=== PATIENT | female | born 1935 | race Hispanic/Latino ===

== ENCOUNTER 2018-10-22 17:00 | Inpatient (IN) | payer MEDICARE, MEDICAID ==
[~2018-10-22 17:00] MED LIST: ISOVUE-370 76%-LOCM 1 ML ONE
[2018-10-22] MEDS ORDERED: Rocuronium Bromide 10 MG/ML (10ML VIAL) ONE ×2 (17:08→17:14)
[2018-10-22 17:27] LABS: #Basophils 0.1 thou/uL (0.0-0.2); #Eosinphils 0.1 thou/uL (0.0-0.7); #Lymphocytes 2.1 thou/uL (1.20-3.40); #Monocytes 0.9 thou/uL (0.11-0.59); #Neutrophils 6.9 thou/uL (1.40-6.50); %Eosinophils 1.3 % (0.0-10.0); %Lymphocytes 20.5 % (21.0-51.0); %Monocytes 8.9 % (0.0-10.0); %Neutrophils 68.3 % (42.0-75.0); Hemoglobin 12.6 g/dL (12.0-16.0); Mean Corpuscular HGB CONC 31.5 g/dL (32.0-36.0); Mean Corpuscular Hemoglobin 27.7 pg (27.0-31.0); Mean Corpuscular Volume 88.1 fL (78.0-98.0); Mean Platelet Volume 7.1 fL (7.4-10.4); Platelet Count 338 thou/uL (130-400); Red Blood Cell (RBC) Count 4.56 mill/uL (4.20-5.40)
[2018-10-22 17:35] LABS: INR-International Normal Ratio 1.3; Prothrombin Time 15.9 SEC (12.0-14.7)
[2018-10-22 17:46] LABS: Actual Bicarbonate (HCO3a) 14.9 mEq/L (22-28); Analyzer IN Cardio ER; Base Excess (BEa) -9.4 mEq/L (-2.0 to +3.0); CO2 Tension 27.8 mmHg (35.0-45.0); Calcium, Ionized 1.13 mmol/L (1.12-1.30); Carboxyhemoglobin (COHb) 0.5 gm% (0.0-3.0); Hemoglobin (Hb) 11.5 g/dL (12.0-16.0); O2 Tension (PaO2) 69.1 mmHg (> 60.0); Potassium - ABG Lab 3.35 mmol/L (3.70-5.30); pH, Arterial 7.35 (7.35-7.45)
[2018-10-22 17:48] LABS: Puncture Site RRA
[2018-10-22 17:52] LABS: Bilirubin Negative (Negative); Blood, Urine Large (Negative); Glucose, Urine (Dipstick) 100 mg/dL (Negative); Leukocyte Negative (Negative); Nitrite Negative (Negative); Protein, Urine (Dipstick) > or equal to 300 mg/dL (Neg-Trace); Urobilinogen 0.2 mg/dL (Less than 2)
[2018-10-22 17:58] LABS: Lactic Acid 4.2 mmol/L (0.5-2.2)
[2018-10-22 18:01] LABS: ALT (SGPT) 18 U/L (8-55); AST (SGOT) 38 U/L (5-34); Albumin 3.2 g/dL (3.4-4.8); Alkaline Phosphatase 114 U/L (40-150); Anion Gap 20 mmol/L (10-20); BUN (Urea Nitrogen) 15 mg/dL (9.8-20.1); Bilirubin, Total 0.5 mg/dL (0.2-1.2); Calc. Creatinine Clearance 0 mL/min (70-130); Calcium 9.8 mg/dL (7.8-10.44); Carbon Dioxide 14 mmol/L (23-31); Chloride 104 mmol/L (98-107); Estimated GFR-MDRD 58; Globulin 5.6 g/dL (2.4-3.5); Glucose 200 mg/dL (83-110); Potassium 4.5 mmol/L (3.5-5.1); Protein, Total 8.8 g/dL (6.0-8.3); Sodium 133 mmol/L (136-145)
[2018-10-22 18:04] LABS: Clarity Clear (Clear)
[2018-10-22 18:05] LABS: Bacteria/HPF 4+ HPF (None Seen); RBC/HPF Greater than 50 HPF (0-3); Squamous Epithelial 21-50 HPF (0-3)
[2018-10-22 18:14] LABS: CKMB 1.1 ng/mL (0-6.6)
[2018-10-22] MEDS ORDERED: Furosemide 100 MG/10 ML VIAL ONE (18:17)
[2018-10-22] MEDS ORDERED: Heparin 1,000 UNITS/ML VIAL ONE ×2 (18:17→18:30)
[2018-10-22] MEDS ORDERED: Heparin 25,000 units/D5W 500 ML ONE (18:18)
--- NOTE | 2018-10-22 18:45 | RAD ---
PORTABLE UPRIGHT FRONTAL CHEST RADIOGRAPH: 10/22/2018 HISTORY: Shortness of breath. COMPARISON: None. FINDINGS: There is dense opacity in the left lung base with air bronchogram formation. There is obscuration of the left hemidiaphragm and blunting of the left costophrenic angle. There is patchy opacity in the medial right base as well. Mild blunting of the right costophrenic angle noted. There is atheroscle rotic calcification of the aortic arch. IMPRESSION: Bibasilar pleural and parenchymal opacity, as detailed above. Findings suggest pulmonary edema. Bib asilar infectious pneumonitis or aspiration cannot be excluded. Recommend follow-up imaging followin g treatment to document resolution. POS: [facility]
--- NOTE | 2018-10-22 18:57 | CT ---
CT ANGIOGRAM CHEST: 10/22/2018 HISTORY: Dyspnea. Hypoxia. COMPARISON: None. TECHNIQUE: Axial CT imaging at 2.5 mm intervals through the chest with IV contrast using CT angiogram protocol. Coronal and oblique sagittal 3D reformatted imaging obtained. FINDINGS: No axillary lymphadenopathy. No mediastinal or hilar lymphadenopathy is seen. Incompletely assessed, nonspecific free fluid is seen in the right upper quadrant and left upper quad rant of the abdomen. There is scattered atherosclerotic calcification of the abdominal aorta and its branches. Moderate bilateral pleural effusions are noted. There is atherosclerotic calcification of the aortic arch and descending thoracic aorta. There is significant acute pulmonary arterial embolism within the distal aspect of the left main pulm onary artery, extending into the lobar and segmental branches supplying the left upper lobe and lingu la. There is probable small volume clot within the lobar pulmonary artery supplying the left lower l obe. There is near complete consolidation/collapse of the left lower lobe. There is acute pulmonary arterial embolus within the lobar and segmental pulmonary arteries supplying the right upper lobe. There is also clot within the lobar and segmental pulmonary arteries supplying the right lower lobe. There is partial consolidation/collapse of the right lower lobe. Motion artifact limits detailed as sessment of the lung parenchyma. Review of the osseous structures demonstrates no worrisome lytic or blastic bone lesion. IMPRESSION: 1. Bilateral acute pulmonary artery embolism. 2. Significant bilateral pleural effusions. 3. Nonspecific upper abdominal ascites. The results were called to Dr. Montiel at 6:20 p.m. on 10/22/2018. CODE CR POS: [facility]
[2018-10-22] MEDS ORDERED: Heparin 10,000 UNITS/ 10 ML VIAL SLOW IVP SCH (19:30)
[2018-10-22] MEDS ORDERED: Acetaminophen 325 MG TAB PO PRN (19:30)
[2018-10-22] MEDS ORDERED: Acetaminophen 650 MG Suppository PR PRN (19:30)
[2018-10-22] MEDS ORDERED: Heparin 25,000 units/D5W 500 ML IVPB SCH (19:30)
[2018-10-22] MEDS ORDERED: Haloperidol Lactate 5 MG/ML VIAL ONE (19:57)
[2018-10-22 20:00] LABS: Hemoglobin 12.2 g/dL (12.0-16.0); Platelet Count 304 thou/uL (130-400)
[2018-10-22 20:13] LABS: PTT 227.1 SEC (22.9-36.1)
--- NOTE | 2018-10-22 20:29 | HP ---
PRIMARY CARE PHYSICIAN: Richar Rodriguez MD CODE STATUS: As of now, full code. The family wants to do a trial of intubation or resuscitation. CHIEF COMPLAINT: Shortness of breath. HISTORY OF PRESENT ILLNESS: This is an 83-year-old female patient with past medical history of dementia, hyperlipidemia, hypertension, who came to the hospital after having an episode of sudden onset shortness of breath with no clear triggers and no alleviating factors. She was found to have O2 sat in the 60s and labored breathing. The symptoms were severe when she got here and CT angio showed the patient has pulmonary embolism. The patient has been started on heparin. Dr. Hernandez has been consulted and we will follow recommendations. REVIEW OF SYSTEMS: Unable to obtain. The patient is in respiratory failure and has underlying dementia. PAST MEDICAL HISTORY: As mentioned in the HPI. PAST SURGICAL HISTORY: None. PAST PSYCHIATRIC HISTORY: She had dementia. FAMILY HISTORY:Reviewed and non contributory for current presentation. SOCIAL HISTORY: The patient lives in a long-term care facility at [facility]. ALLERGIES: NO KNOWN DRUG ALLERGIES. REPORTED MEDICATIONS: 1. Donepezil. 2. Megace. 3. Risperidone. PHYSICAL EXAMINATION: VITAL SIGNS: Blood pressure 192/126, heart rate is 137, respiratory rate was 40 , temperature 97.4. No pain. The patient is in BiPAP. GENERAL APPEARANCE: The patient is alert, disoriented, in mild distress due to respiratory failure. HEENT: Eyes, normal conjunctivae. Moist oral mucosa. Anicteric. No JVD. RESPIRATORY: Bilateral air entry. No rales. No wheezing. Symmetric expansion. CARDIOVASCULAR: The patient is tachycardic. Regular rhythm. No murmurs. No gallop. No edema. ABDOMEN: Soft. Normal bowel sounds. MUSCULOSKELETAL: Baseline range of motion and strength. SKIN: Warm and intact. No pallor. No rash. No redness. Capillary refill seems to be intact. NEUROLOGIC: No evidence of any new focal weakness. Cranial nerves seems to be intact. PSYCHIATRIC: The patient has underlying dementia. DIAGNOSTIC STUDIES: EKG was reviewed. The patient has sinus tachycardia at the rate of 130 and low-voltage QRS. The patient had CT angio that shows bilateral pulmonary embolism and bilateral pleural effusion. LABORATORY DATA: Reviewed. The patient has white count 10, hemoglobin 12.6, MCV 88, platelet count 338. Coagulation; PT 15.9, INR 1.3, PTT 32. Blood gas; pH 7.35, pO2 of 69. Chemistry; sodium 133, potassium 4.5, chloride 104, carbon dioxide 14, anion gap 20, BUN 15, creatinine 0.92, GFR 58, glucose 200, lactic acid 4.2, calcium 9.8, total bilirubin 0.5. LFTs were negative. Beta-natriuretic peptide 25.3. Troponin 0.048. Albumin 3.2. Urine was positive for glucosuria, ketonuria, hematuria, white count 4 to 6. ASSESSMENT AND PLAN: The patient will be placed in the hospital with following medical problems: 1. Acute pulmonary embolism seen on the CAT scan. The patient is on BiPAP. Vital signs have remained stable except for the hypoxia. The patient has started to get heparin. The patient will be placed in Critical Care. We will monitor and follow Dr. Hernandez's recommendations. 2. Acute hypoxic respiratory failure secondary to pulmonary embolism and also due to bilateral pleural effusion. The patient is on BiPAP. She is stable as of now, remains critical. We will adjust respiratory therapy depending on the patient's response. 3. Hyponatremia. Sodium is 133. This is minimal. No need for any acute intervention. We will reconcile home medications. 4. Severe metabolic acidosis with carbon dioxide of 14, likely secondary to lactic acidosis of 4.2. We will treat underlying condition. We will monitor and treat accordingly. 5. History of Alzheimer's. The patient will need supportive care as inpatient. 6. Deep venous thrombosis prophylaxis. The patient is on heparin. 7. Hyperlipidemia. Low-cholesterol diet is advised. Reconcile home meds. 8. Hypertension that has been uncontrolled on presentation with systolic blood pressure in the 160. Given the history of pulmonary embolism and risk for septic shock, we will not treat aggressively at this point. Job ID: [id number] [facility]
[2018-10-22 21:00] LABS: Troponin I 0.284 ng/mL (< 0.028)
[2018-10-23 00:05] LABS: Troponin I 0.332 ng/mL (< 0.028)
[2018-10-23] MEDS: Sodium Chloride 0.9% 1,000 ML IV SCH ×2 (00:36→20:23)
[2018-10-23 03:51] LABS: #Lymphocytes 0.4 thou/uL (1.20-3.40); #Monocytes 0.1 thou/uL (0.11-0.59); #Neutrophils 6.3 thou/uL (1.40-6.50); %Eosinophils 0.2 % (0.0-10.0); %Lymphocytes 5.9 % (21.0-51.0); %Monocytes 1.8 % (0.0-10.0); Hemoglobin 11.7 g/dL (12.0-16.0); Mean Corpuscular HGB CONC 32.4 g/dL (32.0-36.0); Mean Corpuscular Hemoglobin 28.5 pg (27.0-31.0); Mean Platelet Volume 6.9 fL (7.4-10.4); Platelet Count 285 thou/uL (130-400); RBC Distribution Width 13.9 % (11.5-14.5); Red Blood Cell (RBC) Count 4.11 mill/uL (4.20-5.40); White Blood Cell (WBC) Count 6.9 thou/uL (4.8-10.8)
[2018-10-23 04:08] LABS: Anion Gap 16 mmol/L (10-20); BUN (Urea Nitrogen) 15 mg/dL (9.8-20.1); Calc. Creatinine Clearance 39 mL/min (70-130); Calcium 9.2 mg/dL (7.8-10.44); Carbon Dioxide 19 mmol/L (23-31); Chloride 105 mmol/L (98-107); Estimated GFR-MDRD 69; Glucose 140 mg/dL (83-110); Potassium 3.8 mmol/L (3.5-5.1); Sodium 136 mmol/L (136-145)
[2018-10-23] MEDS ORDERED: Enoxaparin Sodium 40 MG/0.4 ML SYRINGE SC SCH (09:00)
[2018-10-23] MEDS ORDERED: Prevnar 13-Val Conj/PF 0.5 ML SYRINGE IM ONE (09:00)
--- NOTE | 2018-10-23 09:36 | CON ---
DATE OF CONSULTATION: HISTORY OF PRESENT ILLNESS: Melisa Germain is an 83-year-old demented lady from the [place]. The patient's daughter and son-in-law are at the bedside, who gave excellent history. She recently moved from [place] where she was living independently. Sats were 68% on room air in the care home. CT angio showed bilateral pulmonary emboli as well as a large bilateral pleural effusions. She has apparently been walking in the care home as per the family. This morning, she is awake, alert, and responsive. PAST MEDICAL HISTORY: Dementia, reflux, lipidemia, and hypertension. PAST SURGICAL HISTORY: Previous surgeries apparently none. CHRONIC MEDICATIONS: 1. Megace. 2. Risperdal 1 mg. 3. Donepezil 10. ALLERGIES: NONE. SOCIAL HISTORY: Unremarkable. FAMILY HISTORY: Unremarkable. REVIEW OF SYSTEMS: Otherwise, 10-point negative. PHYSICAL EXAMINATION: VITAL SIGNS: Saturation is 100% on 2 L, temperature 98, pulse 97, and blood pressure . CHEST: Decreased breath sounds bilaterally. CARDIAC: Normal S1, S2. No gallops. ABDOMEN: No masses. LABORATORY DATA: White count 6000, hemoglobin and hematocrit 11 and 36, and platelet count 285. Lytes are normal. Troponin is elevated at 0.33. IMAGING STUDIES: CT chest shows a large pleural effusion and bilateral pulmonary emboli. IMPRESSION: Bilateral pulmonary emboli, large pleural effusion, hypertension, and dementia. PLAN: Switch over to Lovenox. Ultrasound of the leg. PT, diet. Nutrition will follow. 45 minutes critical time. Job ID: [id number]
--- NOTE | 2018-10-23 10:30 | RAD ---
Exam: Chest one view HISTORY:Congestive heart failure Comparison: 10/22/2018 FINDINGS: Cardiac silhouette: Normal Aorta: Atherosclerosis Pulmonary vessels: Prominent Costophrenic angles: Bilateral pleural effusions LUNGS: Stable opacification of the lung parenchyma, greatest along left lung base Pneumothorax: None Osseous abnormalities: None IMPRESSION: 1. Atherosclerosis 2. Congestive heart failure 3. No significant change
[2018-10-23] MEDS: Enoxaparin Sodium 60 MG/0.6 ML SYRINGE SC SCH ×2 (10:51→20:00)
--- NOTE | 2018-10-23 11:10 | OP ---
DATE OF PROCEDURE: 10/23/2018 PROCEDURE PERFORMED: Thoracentesis. INDICATION: Pleural effusion. DESCRIPTION OF PROCEDURE: After informed consent from the patient along with daughter, power of attorney at law, and the patient sitting upright in bed, the right posterior hemithorax was cleaned with chlorhexidine. 1% lidocaine was infiltrated into the ninth midscapular area. Pleural cavity was entered in, 20 mL of sanguineous fluid was removed without any difficulty. Thereafter, using an 8-Yoruba catheter, additional 800 mL was removed without any problems. Effusion was sent for appropriate studies including culture and cytology. The patient tolerated the procedure well. Job ID: [id number]
[2018-10-23 11:18] LABS: BF Color Red; Body Fluid Source Thoracentesis Fluid; Clarity Cloudy/Turbid (Clear); RBC Background Count 0.009; Tube # EDTA
[2018-10-23 11:19] LABS: RBC Count-Automated 35000 /cumm; WBC/NonHematic-Auto 604 /cumm
--- NOTE | 2018-10-23 11:26 | ULT ---
BILATERAL LOWER EXTREMITY VENOUS ULTRASOUND WITH DOPPLER: Date: 10/23/18 HISTORY: Patient has bilateral pulmonary artery emboli. COMPARISON: None. TECHNIQUE: Reilly scale, color flow, Doppler imaging, and spectral waveform analysis performed of the left and rig ht lower extremity deep venous system. FINDINGS: RIGHT LOWER EXTREMITY: There is partial occlusion of the right common femoral vein. The femoral vein, greater saphenous vein , profunda femoral vein, and posterior tibial vein are patent. Suboptimal evaluation of the popliteal vein. LEFT LOWER EXTREMITY: There is compressibility, presence of flow, and augmentation in the common femoral, femoral vein, and popliteal vein. There is flow in the greater saphenous vein and profunda vein. Flow in the posterior tibial veins. IMPRESSION: 1. Limited evaluation of the right popliteal vein. 2. Partial thrombus involving the right common femoral vein. POS: OFF
[2018-10-23 11:34] LABS: Fluid, Triglycerides 35 mg/dL (Not Available); Pleural Fluid, Amylase Less than 30 U/L (Not Available); Pleural Fluid, Glucose 110 mg/dL; Pleural Fluid, LDH 179 U/L (Not Available); Pleural Fluid, Protein 4.4 g/dL
[2018-10-23 11:38] LABS: BF Segmented Neutrophils 1 %
[2018-10-23 11:39] LABS: Cell Count Non Hematic 87 %; Lymphocytes 12 %
--- NOTE | 2018-10-23 19:10 | PDOC.HOSPP ---
- Subjective Encounter Date: 10/23/18 Encounter Time: 09:20 Subjective: Pt seen for followup re: bilateral pulmonary embolism. Pt unable to answer questions due to dementia, could not complete ROS. - Objective Vital Signs & Weight: Vital Signs (12 hours) Temp Pulse Ox 10/23/18 16:00 97.9 F 10/23/18 12:00 97.7 F 10/23/18 08:05 99 10/23/18 07:43 98 Weight Admit Weight 105 lb Weight 105 lb 13.15 oz Most Recent Monitor Data Heart Rate from ECG 96 NIBP 131/70 NIBP BP-Mean 90 Respiration from ECG 28 SpO2 90 I&O: 10/22/18 10/23/18 10/24/18 06:59 06:59 06:59 Intake Total 727.2 Output Total 2635 435 Balance -1907.8 -435 Result Diagrams: 10/23/18 03:42 10/23/18 03:42 ROS - Medication Medications: Active Medications Generic Name Dose Route Start Last Admin Trade Name Freq PRN Reason Stop Dose Admin Enoxaparin Sodium 50 mg 10/23/18 09:00 10/23/18 10:51 Lovenox SC 50 mg 0900,2100 [facility] Administration - Exam NAD Eye: anicteric sclera ENT: normocephalic atraumatic Neck: supple Heart: RRR Respiratory: CTAB Gastrointestinal: soft Extremities: no cyanosis Skin: normal turgor Neurological: CN's grossly intact Psychiatric: normal affect Hosp A/P (1) Bilateral pulmonary embolism Code(s): I26.99 - OTHER PULMONARY EMBOLISM WITHOUT ACUTE COR PULMONALE Status : Acute (2) Pleural effusion Code(s): J90 - PLEURAL EFFUSION, NOT ELSEWHERE CLASSIFIED Status: Acute (3) Dementia Code(s): F03.90 - UNSPECIFIED DEMENTIA WITHOUT BEHAVIORAL DISTURBANCE Status: Chronic (4) GERD (gastroesophageal reflux disease) Code(s): K21.9 - GASTRO-ESOPHAGEAL REFLUX DISEASE WITHOUT ESOPHAGITIS Status: Chronic (5) HTN (hypertension) Code(s): I10 - ESSENTIAL (PRIMARY) HYPERTENSION Status: Chronic - Plan out of bed/ambulate Continue Lovenox. s/p R thoracentesis. Resume donepezil. Discussed with son and daughter by bedside, updated them.
[2018-10-23] MEDS: Donepezil HCl 10 MG TAB PO SCH (19:59)
[2018-10-23] MEDS: risperiDONE 1 MG TAB PO SCH (19:59)
--- NOTE | 2018-10-24 08:07 | PRG ---
DATE OF SERVICE: 10/24/2018 SUBJECTIVE: This morning, she is awake, alert, responsive. No shortness of breath. OBJECTIVE: VITAL SIGNS: Blood pressure 109/53, pulse 72, respiratory rate 18, saturations 98% on 1 L. CHEST: Decreased breath sounds without any wheezing. CARDIAC: Normal S1, S2. No gallop. ABDOMEN: No masses. Thoracentesis fluid was bloody. It appeared to be an exudate. Protein was 4.4. She had ultrasound done of the legs, which showed a clot. She had an echocardiogram done yesterday, which basically showed normal systolic function, impaired diastolic dysfunction. IMPRESSION: Bilateral pulmonary emboli, deep venous thrombosis, apparently had hematuria. PLAN: Continue Lovenox until we find out there is no major bleeding. If this the case, she clearly may be not a candidate for anticoagulation. She may need a filter considering advanced age and dementia. CBC is being ordered. Continue supportive care and PT. She can probably transfer out of the ICU. Family to once again discuss the code status. Job ID: [id number]
[2018-10-24] MEDS: Enoxaparin Sodium 60 MG/0.6 ML SYRINGE SC SCH ×2 (08:19→20:02)
--- NOTE | 2018-10-24 08:24 | RAD ---
SINGLE VIEW CHEST: Date: 10/24/18 COMPARISON: 10/23/18. HISTORY: Congestive heart failure. FINDINGS: Single view of the chest shows normal sized cardiomediastinal silhouette. There is a small left pleur al effusion. Bibasilar atelectasis is seen. Increased interstitial markings are present. IMPRESSION: Small left pleural effusion. POS: [facility]
[2018-10-24 08:48] LABS: #Monocytes 0.6 thou/uL (0.11-0.59); %Basophils 0.1 % (0.0-1.0); %Eosinophils 0.3 % (0.0-10.0); %Lymphocytes 10.5 % (21.0-51.0); %Monocytes 6.6 % (0.0-10.0); %Neutrophils 82.6 % (42.0-75.0); Hemoglobin 12.6 g/dL (12.0-16.0); Mean Corpuscular HGB CONC 31.4 g/dL (32.0-36.0); Mean Corpuscular Hemoglobin 27.5 pg (27.0-31.0); Mean Corpuscular Volume 87.5 fL (78.0-98.0); Mean Platelet Volume 7.4 fL (7.4-10.4); Platelet Count 324 thou/uL (130-400); RBC Distribution Width 14.3 % (11.5-14.5); Red Blood Cell (RBC) Count 4.57 mill/uL (4.20-5.40); White Blood Cell (WBC) Count 9.7 thou/uL (4.8-10.8)
--- NOTE | 2018-10-24 12:39 | PDOC.HOSPP ---
- Subjective Encounter Date: 10/24/18 Encounter Time: 09:00 Subjective: Pt seen for followup re: pulmonary embolism. Could not complete ROS due to pt' s dementia. - Objective Vital Signs & Weight: Vital Signs (12 hours) Temp Pulse Ox 10/24/18 07:54 100 10/24/18 07:53 98.3 F 100 10/24/18 04:00 97.8 F Weight Admit Weight 105 lb Weight 99 lb 13.91 oz Most Recent Monitor Data Heart Rate from ECG 97 NIBP 138/75 NIBP BP-Mean 96 Respiration from ECG 30 SpO2 98 I&O: 10/23/18 10/24/18 10/25/18 06:59 06:59 06:59 Intake Total 727.2 240 50 Output Total 2635 835 200 Balance -1907.8 -595 -150 Result Diagrams: 10/24/18 08:02 10/23/18 03:42 EKG Reviewed by me: Yes (Tele: NSR) ROS - Medication Medications: Active Medications Generic Name Dose Route Start Last Admin Trade Name Freq PRN Reason Stop Dose Admin Donepezil HCl 10 mg 10/23/18 21:00 10/23/18 19:59 Aricept PO 10 mg HS TERESA Administration Enoxaparin Sodium 50 mg 10/23/18 09:00 10/24/18 08:19 Lovenox SC 50 mg 0900,2100 [facility] Administration Risperidone 1 mg 10/23/18 21:00 10/23/18 19:59 Risperidone PO 1 mg HS TERESA Administration - Exam NAD Eye: anicteric sclera ENT: normocephalic atraumatic Neck: supple Heart: RRR Respiratory: CTAB Gastrointestinal: soft Skin: no lesions Psychiatric: normal affect Hosp A/P (1) Bilateral pulmonary embolism Code(s): I26.99 - OTHER PULMONARY EMBOLISM WITHOUT ACUTE COR PULMONALE Status : Acute (2) Pleural effusion Code(s): J90 - PLEURAL EFFUSION, NOT ELSEWHERE CLASSIFIED Status: Acute (3) Dementia Code(s): F03.90 - UNSPECIFIED DEMENTIA WITHOUT BEHAVIORAL DISTURBANCE Status: Chronic (4) GERD (gastroesophageal reflux disease) Code(s): K21.9 - GASTRO-ESOPHAGEAL REFLUX DISEASE WITHOUT ESOPHAGITIS Status: Chronic (5) HTN (hypertension) Code(s): I10 - ESSENTIAL (PRIMARY) HYPERTENSION Status: Chronic - Plan out of bed/ambulate Pt had small amount of blood in commode but hemoglobin is stable. s/p R thoracentesis, fluid is transudate Continue donepezil.
[2018-10-24 19:34] LABS: Hemoglobin 11.7 g/dL (12.0-16.0); Platelet Count 302 thou/uL (130-400)
[2018-10-24] MEDS: risperiDONE 1 MG TAB PO SCH (20:02)
[2018-10-24] MEDS: Donepezil HCl 10 MG TAB PO SCH (20:02)
[2018-10-25 04:53] LABS: #Eosinphils 0.1 thou/uL (0.0-0.7); #Lymphocytes 0.7 thou/uL (1.20-3.40); #Monocytes 0.5 thou/uL (0.11-0.59); #Neutrophils 4.5 thou/uL (1.40-6.50); %Basophils 0.2 % (0.0-1.0); %Eosinophils 1.5 % (0.0-10.0); %Lymphocytes 11.4 % (21.0-51.0); %Monocytes 8.8 % (0.0-10.0); %Neutrophils 78.1 % (42.0-75.0); Hemoglobin 11.2 g/dL (12.0-16.0); Mean Corpuscular HGB CONC 31.8 g/dL (32.0-36.0); Mean Corpuscular Hemoglobin 27.7 pg (27.0-31.0); Mean Corpuscular Volume 87.2 fL (78.0-98.0); Mean Platelet Volume 7.6 fL (7.4-10.4); Platelet Count 285 thou/uL (130-400); RBC Distribution Width 14.3 % (11.5-14.5); Red Blood Cell (RBC) Count 4.05 mill/uL (4.20-5.40); White Blood Cell (WBC) Count 5.8 thou/uL (4.8-10.8)
--- NOTE | 2018-10-25 06:20 | PRG ---
DATE OF SERVICE: SUBJECTIVE: This morning, she is awake, alert, and responsive. OBJECTIVE: GENERAL: No distress. VITAL SIGNS: Sats are 98% on room air, temperature 98, pulse , respirations 20, and blood pressure . CHEST: Decreased breath sounds. No wheezing. CARDIAC: Normal S1, S2. No gallops. ABDOMEN: No masses. LABORATORY DATA: H and H are dropped a little bit, 11 and 35. As far as I know, there is no further bleeding from her bladder. IMPRESSION: Deep venous thrombosis; pulmonary emboli; bilateral pleural effusion, bloody, probably secondary to infarcts, advanced age, and dementia. If there is no evidence of any bleeding, I am going to switch her to Eliquis today. Watch her very closely. If she starts bleeding, she is going to need a filter. She needs to be made DNR, once again discussed with the family. Prognosis remains guarded. Job ID: [id number]
[2018-10-25] MEDS: Enoxaparin Sodium 60 MG/0.6 ML SYRINGE SC SCH ×2 (08:25→20:43)
[2018-10-25 12:02] VITALS: BMI 18.8
--- NOTE | 2018-10-25 14:13 | PDOC.HOSPP ---
- Subjective Encounter Date: 10/25/18 Encounter Time: 08:20 Subjective: Pt seen for followup re: pulmonary embolism. Pt not answering questions reliably, unable to complete ROS. - Objective Vital Signs & Weight: Vital Signs (12 hours) Temp Pulse Resp BP BP Pulse Ox 10/25/18 08:00 81 92 L 10/25/18 07:53 98.7 F 90 18 159/77 H 90 L 10/25/18 04:00 98.1 F 82 20 152/74 H 94 L Weight Admit Weight 104 lb 4.458 oz Weight 99 lb 13.91 oz Most Recent Monitor Data Heart Rate from ECG 97 NIBP 135/75 NIBP BP-Mean 95 Respiration from ECG 15 SpO2 98 I&O: 10/24/18 10/25/18 10/26/18 06:59 06:59 06:59 Intake Total 240 790 Output Total 835 200 Balance -595 590 Result Diagrams: 10/25/18 04:05 10/23/18 03:42 Additional Labs: Accuchecks 10/24/18 16:34 POC Glucose 86 ROS - Medication Medications: Active Medications Generic Name Dose Route Start Last Admin Trade Name Freq PRN Reason Stop Dose Admin Donepezil HCl 10 mg 10/23/18 21:00 10/24/18 20:02 Aricept PO 10 mg HS TERESA Administration Enoxaparin Sodium 50 mg 10/23/18 09:00 10/25/18 08:25 Lovenox SC 50 mg 0900,2100 [facility] Administration Risperidone 1 mg 10/23/18 21:00 10/24/18 20:02 Risperidone PO 1 mg HS TERESA Administration - Exam General - other findings: appears frail Eye: anicteric sclera ENT: normocephalic atraumatic Neck: supple Heart: RRR Respiratory: CTAB Gastrointestinal: soft Musculoskeletal - other findings: Moves all four extremities Psychiatric - other findings: Unable to assess Hosp A/P (1) Bilateral pulmonary embolism Code(s): I26.99 - OTHER PULMONARY EMBOLISM WITHOUT ACUTE COR PULMONALE Status : Acute (2) Pleural effusion Code(s): J90 - PLEURAL EFFUSION, NOT ELSEWHERE CLASSIFIED Status: Acute (3) Dementia Code(s): F03.90 - UNSPECIFIED DEMENTIA WITHOUT BEHAVIORAL DISTURBANCE Status: Chronic (4) GERD (gastroesophageal reflux disease) Code(s): K21.9 - GASTRO-ESOPHAGEAL REFLUX DISEASE WITHOUT ESOPHAGITIS Status: Chronic (5) HTN (hypertension) Code(s): I10 - ESSENTIAL (PRIMARY) HYPERTENSION Status: Chronic - Plan PT/OT, out of bed/ambulate Hemoglobin stable, pt has been transitioned to apixaban. s/p R thoracentesis, with transudative fluid removal. On donepezil.
[2018-10-25] MEDS: risperiDONE 1 MG TAB PO SCH (20:35)
[2018-10-25] MEDS: Donepezil HCl 10 MG TAB PO SCH (20:35)
[2018-10-26 06:15] LABS: #Eosinphils 0.1 thou/uL (0.0-0.7); #Lymphocytes 0.6 thou/uL (1.20-3.40); #Monocytes 0.5 thou/uL (0.11-0.59); #Neutrophils 4.1 thou/uL (1.40-6.50); %Basophils 0.3 % (0.0-1.0); %Eosinophils 2.3 % (0.0-10.0); %Lymphocytes 10.6 % (21.0-51.0); %Neutrophils 76.8 % (42.0-75.0); Hemoglobin 11.4 g/dL (12.0-16.0); Mean Corpuscular HGB CONC 32.5 g/dL (32.0-36.0); Mean Corpuscular Hemoglobin 28.4 pg (27.0-31.0); Mean Corpuscular Volume 87.3 fL (78.0-98.0); Mean Platelet Volume 7.6 fL (7.4-10.4); Platelet Count 289 thou/uL (130-400); RBC Distribution Width 14.1 % (11.5-14.5); Red Blood Cell (RBC) Count 4.01 mill/uL (4.20-5.40); White Blood Cell (WBC) Count 5.3 thou/uL (4.8-10.8)
[2018-10-26] MEDS: Enoxaparin Sodium 60 MG/0.6 ML SYRINGE SC SCH (09:36)
[2018-10-26] MEDS ORDERED: Megestrol Acetate 40 MG TAB PO SCH (11:15)
--- NOTE | 2018-10-26 11:19 | PRG ---
DATE OF SERVICE: 10/26/2018 SUBJECTIVE: The patient seems to be doing reasonably well. She had no complaints. OBJECTIVE: VITAL SIGNS: Temperature is 98.3, pulse 79, respirations 18, O2 saturation 95%, and blood pressure 147/72. HEENT: Unremarkable. NECK: No adenopathy or JVD. CHEST: Somewhat diminished breath sounds in the right base compared to the left. CARDIAC: Rhythm, regular. ABDOMEN: Soft. EXTREMITIES: No edema. IMAGING STUDIES: Chest x-ray from two days ago showed blunting of left costophrenic angle. LABORATORY DATA: White blood cell count 5.3, hemoglobin 11.4, hematocrit 35, and platelet count 289. Sodium 136, potassium 3.8, chloride 105, CO2 of 19, BUN 15, creatinine 0.7, glucose 140. ASSESSMENT: 1. Status post drainage of pleural effusion. 2. Deep venous thrombosis. 3. Pulmonary emboli. PLAN: The patient is probably suitable for transfer to next level of care. She is currently on Lovenox. Dr. Ortega's plan yesterday was to switch her to Eliquis. I am not sure why that was not done. I think we should go ahead and switch her, but put her on the 5 mg twice daily dose instead of the 10 mg twice daily dose. Job ID: [id number]
--- NOTE | 2018-10-26 17:00 | PDOC.HOSPP ---
- Subjective Encounter Date: 10/26/18 Encounter Time: 08:40 Subjective: Pt seen for followup re: PE. Not answering questions, unable to complete ROS. - Objective Vital Signs & Weight: Vital Signs (12 hours) Temp Pulse Resp BP Pulse Ox 10/26/18 08:07 98.3 F 79 18 147/72 H 95 10/26/18 08:00 95 Weight Admit Weight 104 lb 4.458 oz Weight 99 lb 13.91 oz Most Recent Monitor Data Heart Rate from ECG 97 NIBP 135/75 NIBP BP-Mean 95 Respiration from ECG 15 SpO2 98 I&O: 10/25/18 10/26/18 10/27/18 06:59 06:59 06:59 Intake Total 790 250 Output Total 200 Balance 590 250 Result Diagrams: 10/26/18 05:33 10/23/18 03:42 Additional Labs: Labs and MARs reviewed by me ROS - Medication Medications: Active Medications Generic Name Dose Route Start Last Admin Trade Name Freq PRN Reason Stop Dose Admin Donepezil HCl 10 mg 10/23/18 21:00 10/25/18 20:35 Aricept PO 10 mg HS TERESA Administration Risperidone 1 mg 10/23/18 21:00 10/25/18 20:35 Risperidone PO 1 mg HS TERESA Administration - Exam NAD Eye: anicteric sclera ENT: normocephalic atraumatic Neck: supple Heart: RRR Respiratory: CTAB Gastrointestinal: soft Skin: normal turgor Neurological: CN's grossly intact Hosp A/P (1) Bilateral pulmonary embolism Code(s): I26.99 - OTHER PULMONARY EMBOLISM WITHOUT ACUTE COR PULMONALE Status : Acute (2) Pleural effusion Code(s): J90 - PLEURAL EFFUSION, NOT ELSEWHERE CLASSIFIED Status: Acute (3) Dementia Code(s): F03.90 - UNSPECIFIED DEMENTIA WITHOUT BEHAVIORAL DISTURBANCE Status: Chronic (4) GERD (gastroesophageal reflux disease) Code(s): K21.9 - GASTRO-ESOPHAGEAL REFLUX DISEASE WITHOUT ESOPHAGITIS Status: Chronic (5) HTN (hypertension) Code(s): I10 - ESSENTIAL (PRIMARY) HYPERTENSION Status: Chronic - Plan plan discussed w/ family pt has been transitioned to apixaban. s/p R thoracentesis, with transudative fluid removal. Cytology negative for malignancy. On donepezil. Add Megace for appetite.
[2018-10-26] MEDS: Donepezil HCl 10 MG TAB PO SCH ×2 (20:25→22:16)
[2018-10-26] MEDS: Apixaban 5 MG TAB PO SCH ×2 (20:25→22:16)
[2018-10-26] MEDS: risperiDONE 1 MG TAB PO SCH ×2 (20:25→22:16)
[2018-10-27 05:50] LABS: #Eosinphils 0.2 thou/uL (0.0-0.7); #Lymphocytes 1.1 thou/uL (1.20-3.40); #Monocytes 0.6 thou/uL (0.11-0.59); %Basophils 0.7 % (0.0-1.0); %Eosinophils 4.2 % (0.0-10.0); %Lymphocytes 17.6 % (21.0-51.0); %Monocytes 10.2 % (0.0-10.0); %Neutrophils 67.4 % (42.0-75.0); Hemoglobin 12.3 g/dL (12.0-16.0); Mean Corpuscular HGB CONC 31.5 g/dL (32.0-36.0); Mean Corpuscular Hemoglobin 27.6 pg (27.0-31.0); Mean Corpuscular Volume 87.4 fL (78.0-98.0); Mean Platelet Volume 7.1 fL (7.4-10.4); Platelet Count 337 thou/uL (130-400); RBC Distribution Width 14.3 % (11.5-14.5); Red Blood Cell (RBC) Count 4.47 mill/uL (4.20-5.40)
[2018-10-27 08:00] VITALS: BP 161/76; TEMP 97.9
[2018-10-27] MEDS: Apixaban 5 MG TAB PO SCH ×2 (08:08→09:33)
[2018-10-27] MEDS: Megestrol Acetate 40 MG TAB PO SCH ×2 (08:08→09:34)
--- NOTE | 2018-10-27 10:06 | PRG ---
DATE OF SERVICE: 10/27/2018 SUBJECTIVE: Ms. Germain is doing reasonably well, had no acute complaints. OBJECTIVE: VITAL SIGNS: Temperature 97.9, pulse 80, respirations 16, O2 saturation 100%, and blood pressure 161/76. HEENT: Unremarkable. NECK: No adenopathy or JVD. CHEST: Clear. CARDIAC: S1 and S2. Regular. ABDOMEN: Soft. LABORATORY DATA: White blood cell count 6, hematocrit 39.1, and platelet count 337. ASSESSMENT: 1. Status post drainage of pleural effusion. 2. Deep venous thrombosis. 3. Pulmonary embolism. PLAN: She was switched to Eliquis yesterday to be maintained on that dose indefinitely. Hopefully, she will not develop any type of bleeding from that. She is safe to go back to the [place] [facility] at any time. No further Pulmonary recommendations. We will sign off. Job ID: [id number]
--- NOTE | 2018-10-27 13:19 | DIS ---
DATE OF ADMISSION: 10/22/2018 DATE OF DISCHARGE: 10/27/2018 PRIMARY CARE PROVIDER: Dr. Richar Rodriguez. DISCHARGE DIAGNOSES: 1. Acute hypoxic respiratory failure. 2. Bilateral pleural effusions. 3. Bilateral acute pulmonary artery embolism. 4. Severe protein calorie malnutrition. 5. Non-ST elevation myocardial infarction type 2 secondary to acute hypoxic respiratory failure. CONDITION OF THE PATIENT ON THE DAY OF DISCHARGE: Stable. PHYSICAL EXAMINATION: VITAL SIGNS: Stable. HEART: S1 and S2 are heard, regular. LUNGS: Clear to auscultation bilaterally. DISCHARGE MEDICATIONS: 1. Donepezil 10 mg at bedtime. 2. Risperidone 1 mg at bedtime. 3. Apixaban 5 mg two times a day. 4. Megace 40 mg daily. CONSULTATIONS DURING THIS HOSPITALIZATION: Pulmonology, Dr. Ortega. HOSPITAL COURSE: Ms. Germain is a pleasant 83-year-old lady, who was admitted to [facility] for acute hypoxic respiratory failure secondary to bilateral pleural effusions and bilateral pulmonary embolism. Please refer to Dr. Lopez's history and physical note dated October 22, 2018 for further details. She was seen by Pulmonary and Critical Care Medicine Service. She underwent right- sided thoracentesis. Approximately, 820 mL were removed. The fluid was transudative in nature. Cytology was negative for malignancy. At the time of this dictation, acid-fast bacilli cultures are pending. Preliminary body fluid culture for the pleural fluid was negative. She was initially treated with Lovenox. There was concern because at one point it appeared that she may have had hematuria. However, there was no recurrence and her hemoglobin was stable. She has been started on apixaban at 5 mg two times a day and she should be maintained on the dose indefinitely, according to Pulmonology Service. She is being discharged back to her longterm in a stable condition. She had poor appetite. She has been started on a trial of Megace. She has also been started on nutritional supplements. On the day of discharge, she has white count 6000, hemoglobin 12.3, and platelet count 337,000. On October 23, she had sodium 136, potassium 3.8, and creatinine 0.79. A 2D echocardiogram done during this hospitalization showed left ventricular ejection fraction of 60% to 65%, normal-sized left atrium, normal-sized left ventricle, impaired relaxation compatible with diastolic dysfunction, mild mitral regurgitation, and mild tricuspid regurgitation. Many thanks for allowing me to participate in your patient's care. Please feel free to contact me with any questions or concerns. DISCHARGE DESTINATION: [facility], from where the patient was admitted to the hospital. TIME SPENT: Total amount of time spent coordinating this discharge, 32 minutes. FOLLOW UP: With primary care provider in 3-5 days. Job ID: [id number]
== END 2018-10-27 15:13 | DRG 175 ==
LOC: ERS 17:00 → CCU 18:30 → T4-B 10-24 13:46
PROVIDERS: ADMIT Internal Medicine; ATTEND Internal Medicine
PROC: 5A09457 Assistance with Respiratory Ventilation, 24-96 Consecutive Hours, Continuous Positive Airway Pressure (ICD-10-PCS; principal; 2018-10-22)
PROC: 0W9930Z Drainage of Right Pleural Cavity with Drainage Device, Percutaneous Approach (ICD-10-PCS; 2018-10-23)
DX: I26.99 Other pulmonary embolism without acute cor pulmonale (principal); I21.A1 Myocardial infarction type 2; J96.01 Acute respiratory failure with hypoxia; E43 Unspecified severe protein-calorie malnutrition; I82.412 Acute embolism and thrombosis of left femoral vein; J90 Pleural effusion, not elsewhere classified; E87.1 Hypo-osmolality and hyponatremia; E87.2 Acidosis; Z68.1 Body mass index [BMI] 19.9 or less, adult; F02.80 Dementia in other diseases classified elsewhere, unspecified severity, without behavioral disturbance, psychotic disturbance, mood disturbance, and anxiety; G30.9 Alzheimer's disease, unspecified; K21.9 Gastro-esophageal reflux disease without esophagitis; E78.5 Hyperlipidemia, unspecified; Z79.899 Other long term (current) drug therapy; I10 Essential (primary) hypertension
CPT/HCPCS: 36415; 36416; 51702; 71045; 71275; 80048; 80053; 81003; 81015; 82150; 82553; 82805; 82945; 83605; 83615; 83880; 83986; 84157; 84478; 84484; 85014; 85018; 85025; 85049; 85060; 85610; 85730; 87070; 87116; 87205; 87206; 88112; 88305; 89051; 90471; 90670; 93005; 93306; 93970; 94660; 96372; 96374; 96375; G0009; J1630; J1642; J1644; J1650; J1940; Q9966; S0179